=== PATIENT | female | born 1960 | race Caucasian/White ===

== ENCOUNTER 2020-12-22 06:20 | Emergency (ER) | payer BC ==
[2020-12-22] MEDS ORDERED: NA CHLORIDE 0.9% 2,000 ML ONE (07:12)
[2020-12-22 07:21] LABS: Absolute Lymphocytes (CBC) 1.2 K/uL (0.7-4.9); Basophils % 0.6 % (0-1.3); Hematocrit 38.7 % (36.0-45.0); Lymphocytes % 13.6 % (15.3-44.8); MPV 9.4 fL (7.6-11.3); RBC Red Blood Cell Count 4.32 M/uL (3.86-4.86)
[2020-12-22 07:34] LABS: ALT/SGPT 78 U/L (12-78); AST/SGOT 49 U/L (15-37); Albumin 3.9 g/dL (3.4-5.0); Alkaline Phosphatase 128 U/L (45-117); Amylase 32 U/L (25-115); BUN Blood Urea Nitrogen 13 mg/dL (7-18); Bicarbonate 24 mmol/L (21-32); Bilirubin Direct 0.2 mg/dL (0-0.2); Bilirubin Total 0.4 mg/dL (0.2-1.0); CKMB Creatine Kinase MB < 1.0 ng/mL (0.3-3.6); Creatine Phosphokinase 49 U/L (26-192); Glucose Level 117 mg/dL (74-106); Lipase 75 U/L (73-393); Potassium 4.2 mmol/L (3.5-5.1); Protein, Total 7.4 g/dL (6.4-8.2); Sodium Level 141 mmol/L (136-145); Troponin (Emerg Dept Use Only) < 0.02 ng/mL (0.0-0.045)
[2020-12-22 07:45] LABS: Protime INR 0.94
--- NOTE | 2020-12-22 08:16 | RAD REPORT ---
EXAM DESCRIPTION: RAD - Chest Single View - 12/22/2020 7:37 am CLINICAL HISTORY: COUGH, low grade fever COMPARISON: None TECHNIQUE: AP portable chest image was obtained 12/22/2020 7:37 am . FINDINGS: No dense mass or consolidation. No measurable airspace opacification to suspect COVID-19 o r other viral pneumonia. Heart and vasculature are normal. No measurable pleural effusion and no pneu mothorax. No acute bony abnormality seen. No acute aortic findings suspected. IMPRESSION: No acute cardiopulmonary process.
[2020-12-22 08:17] LABS: SARS-COV-2 RT PCR POSITIVE (NEGATIVE)
--- NOTE | 2020-12-22 09:02 | ER ---
Nurse's Notes [facility] Name: Cinda eRy Age: 60 yrs Sex: Female : 1960 Arrival Date: 12/22/2020 Time: 06:28 Bed 5 Private MD: Diagnosis: Acute upper respiratory infection, unspecified-covid 19 positive;Acute pharyngitis Presentation: 12/22 06:37 Chief complaint: Patient states: On I started having nasal drainage, and I sg think its making my throat sore from all the drainage from my nose going down my throat, I also have had a low grade fever at home. Coronavirus screen: fever, runny nose, sore throat, Client presents with at least one sign or symptom that may indicate coronavirus-19. Standard/surgical mask placed on the client. Provider contacted for isolation considerations. Ebola Screen: Patient negative for fever greater than or equal to 101.5 degrees Fahrenheit, and additional compatible Ebola Virus Disease symptoms Patient denies exposure to infectious person. Patient denies travel to an Ebola-affected area in the 21 days before illness onset. No symptoms or risks identified at this time. Initial Sepsis Screen: Does the patient meet any 2 criteria? No. Patient's initial sepsis screen is negative. Does the patient have a suspected source of infection? No. Patient's initial sepsis screen is negative. Risk Assessment: Do you want to hurt yourself or someone else? Patient reports no desire to harm self or others. Onset of symptoms was December 21, 2020. Care prior to arrival: None. Transition of care: patient was not received from another setting of care. 06:37 Acuity: KYLEE 4 06:37 Method Of Arrival: Ambulatory sg Triage Assessment: 07:15 General: Behavior is calm, cooperative. mg2 Historical: - Allergies: 06:41 No Known Allergies; sg - Home Meds: 06:41 amlodipine-benazepril 5-40 mg oral cap 1 cap once daily for Hypertension [Active]; sg metoprolol tartrate 25 mg Oral tab for Hypertension [Active]; - PMHx: 06:41 Hypertension; sg - PSHx: 06:41 None; sg - Immunization history:: Adult Immunizations not up to date. - Social history:: Smoking status: Patient denies any tobacco usage or history of. Screenin:51 Abuse screen: Denies threats or abuse. Denies injuries from another. Nutritional mg2 screening: No deficits noted. Tuberculosis screening: No symptoms or risk factors identified. 07:15 Fall Risk IV access (20 points). mg2 Assessment: 06:45 General: Appears in no apparent distress. was pale and diaphoretic. Pain: Complains of mg2 pain in throat. Neuro: Level of Consciousness is awake, alert, obeys commands, Oriented to person, place, time, situation. Cardiovascular: Capillary refill < 3 seconds. Respiratory: Airway is patent Respiratory effort is even, unlabored, Respiratory pattern is regular, symmetrical. GI: No signs and/or symptoms were reported involving the gastrointestinal system. GI:. : No signs and/or symptoms were reported regarding the genitourinary system. EENT: Reports sore throat andf congestion. Derm: Skin is pale. Musculoskeletal: Circulation, motion, and sensation intact. Capillary refill < 3 seconds. 07:00 Reassessment: RECD REPORT FROM HUEY BECK. 60YO WF P/W SORE THROAT AND CONGESTION. bp Respiratory: Breath sounds are clear bilaterally. 08:19 Reassessment: No changes from previously documented assessment. Patient and/or family bp updated on plan of care and expected duration. Pain level reassessed. Patient is alert, oriented x 3, equal unlabored respirations, skin warm/dry/pink. PER LAB, PT COV+. 08:50 Reassessment: TERRI [phone]. bp 09:08 Reassessment: No changes from previously documented assessment. Patient and/or family bp updated on plan of care and expected duration. Pain level reassessed. Patient is alert, oriented x 3, equal unlabored respirations, skin warm/dry/pink. 09:59 Reassessment: D/C ON HOLD FOR IV ABX. bp 11:31 Reassessment: PT D/C HOME AMBULATORY WITH FAMILY, DX WITH COVID. bp Vital Signs: 06:37 Weight 54.43 kg; Height 5 ft. 4 in. (162.56 cm); sg 06:37 BP 54 / 46; Pulse 50; Resp 15; Temp 98.5; Pulse Ox 98% on R/A; rr5 06:50 BP 91 / 64; Pulse 53; Resp 16; Temp 98.5; Pulse Ox 97% ; rr5 07:12 BP 91 / 73; Pulse 59; Resp 16; Pulse Ox 95% on R/A; mg2 08:19 BP 129 / 75; Pulse 76; Resp 16; Pulse Ox 100% ; bp 09:08 BP 117 / 73; Pulse 69; Resp 19; Pulse Ox 99% ; bp 09:59 BP 119 / 75; Pulse 78; Resp 16; Pulse Ox 99% ; bp 11:31 BP 125 / 81; Pulse 80; Resp 16; Temp 98.9; Pulse Ox 100% ; bp 06:37 Body Mass Index 20.60 (54.43 kg, 162.56 cm) ED Course: 06:28 Patient arrived in ED. am4 06:33 Jhonny Lopez MD is Attending Physician. mh7 06:37 Arm band placed on. sg 06:39 Triage completed. sg 06:47 Jimmy Carcamo RN is Primary Nurse. mg2 06:50 Inserted saline lock: 20 gauge in right antecubital area, using aseptic technique. mg2 Blood collected. by KIRAN Ray. 07:00 EKG done, by ED staff, reviewed by Jhonny Lopez MD. rr5 07:15 Patient has correct armband on for positive identification. Door closed. Warm blanket mg2 given. 07:15 No provider procedures requiring assistance completed. mg2 07:15 Inserted saline lock: 18 gauge in left forearm, using aseptic technique. Blood mg2 collected. by KIRAN Gomez. 08:14 Attending Physician role handed off by Jhonny Lopez MD candelaria 08:14 Bashir Hamilton MD is Attending Physician. candelaria 08:17 Primary Nurse role handed off by Jimmy Carcamo RN bp 08:17 [place] RN is Primary Nurse. bp 09:01 Tiago Howard MD is Referral Physician. candelaria 11:31 IV discontinued, intact, bleeding controlled, No redness/swelling at site. Pressure bp dressing applied. Administered Medications: 07:12 Drug: NS 0.9% (30 ml/kg) 30 ml/kg Route: IV; Rate: bolus; Site: right antecubital; mg2 09:09 Follow up: Response: No adverse reaction; IV Status: Completed infusion; IV Intake: bp 100ml 09:00 Drug: Rocephin 1 grams Route: IV; Rate: per protocol; Site: right forearm; bp 09:26 Follow up: IV Status: Completed infusion; IV Intake: 50ml bp 09:00 Drug: Aspirin Chewable Tablet 324 mg Route: PO; bp 09:24 Follow up: Response: No adverse reaction bp 09:00 Drug: Pepcid 20 mg Route: IVP; Site: right forearm; bp 09:24 Follow up: Response: No adverse reaction bp 09:00 Drug: Decadron - Dexamethasone 10 mg Route: IVP; Site: right forearm; bp 09:24 Follow up: Response: No adverse reaction bp 09:45 Drug: Zithromax 500 mg Route: IVPB; Infused Over: 1 hrs; Site: right forearm; bp 10:45 Follow up: IV Status: Completed infusion; IV Intake: 250ml bp 09:45 Drug: Albuterol HFA Inhaler 4 puffs Route: Inhalation; bp 10:40 Drug: Tussionex Pennkinetic ER 5 ml Route: PO; bp 10:44 Follow up: Response: No adverse reaction bp Intake: 09:09 IV: 100ml; Total: 100ml. bp 09:26 IV: 50ml; Total: 150ml. bp 10:45 IV: 250ml; Total: 400ml. bp Outcome: 09:02 Discharge ordered by . candelaria 11:31 Discharged to home ambulatory, with family. bp 11:31 Condition: stable 11:31 Discharge instructions given to patient, Instructed on discharge instructions, follow up and referral plans. medication usage, Demonstrated understanding of instructions, follow-up care, medications, Prescriptions given X 5 11:33 Patient left the ED. bp Signatures: Chris Dutton RN RN sg Anderson, Corey, MD MD cha Peltier, Brian, RN RN bp Jimmy Carcamo RN RN mg2 Cory Oscar RN RN rr5 Jhonny Lopez MD MD 7 Tuyet Cristobal 4
--- NOTE | 2020-12-22 09:02 | EDPHYS ---
Physician Documentation [facility] Name: Cinda Rey Age: 60 yrs Sex: Female : 1960 Arrival Date: 12/22/2020 Time: 06:28 Bed 5 Private MD: ED Physician Bashir Hamilton HPI: 12/22 07:12 This 60 yrs old Female presents to ER via Ambulatory with complaints of Sore mh7 Throat, Congestion. 07:12 The patient presents with sore throat. mh7 07:13 The patient describes throat pain as constant. Onset: The symptoms/episode mh7 began/occurred 2 day(s) ago. Severity of symptoms: At their worst the symptoms were moderate, yesterday, in the emergency department the symptoms are unchanged. Modifying factors: The symptoms are alleviated by nothing, the symptoms are aggravated by swallowing. Associated signs and symptoms: Pertinent positives: cough, dysphagia, fever, flu-like symptoms, myalgias, rhinorrhea, Pertinent negatives chest pain, chills, diarrhea, earache, headache, nausea, shortness of breath, vomiting. Historical: - Allergies: 06:41 No Known Allergies; sg - Home Meds: 06:41 amlodipine-benazepril 5-40 mg oral cap 1 cap once daily for Hypertension [Active]; sg metoprolol tartrate 25 mg Oral tab for Hypertension [Active]; - PMHx: 06:41 Hypertension; sg - PSHx: 06:41 None; sg - Immunization history:: Adult Immunizations not up to date. - Social history:: Smoking status: Patient denies any tobacco usage or history of. ROS: 07:13 Eyes: Negative for injury, pain, redness, and discharge, Neck: Negative for injury, mh7 pain, and swelling, Cardiovascular: Negative for chest pain, palpitations, and edema, Respiratory: Negative for shortness of breath, cough, wheezing, and pleuritic chest pain, Abdomen/GI: Negative for abdominal pain, nausea, vomiting, diarrhea, and constipation, Back: Negative for injury and pain, : Negative for injury, bleeding, discharge, and swelling, MS/Extremity: Negative for injury and deformity, Skin: Negative for injury, rash, and discoloration, Neuro: Negative for headache, weakness, numbness, tingling, and seizure, Psych: Negative for depression, anxiety, suicide ideation, homicidal ideation, and hallucinations, Allergy/Immunology: Negative for hives, rash, and allergies, Endocrine: Negative for neck swelling, polydipsia, polyuria, polyphagia, and marked weight changes, Hematologic/Lymphatic: Negative for swollen nodes, abnormal bleeding, and unusual bruising. Exam: 07:13 Head/Face: Normocephalic, atraumatic. Eyes: Pupils equal round and reactive to light, mh7 extra-ocular motions intact. Lids and lashes normal. Conjunctiva and sclera are non-icteric and not injected. Cornea within normal limits. Periorbital areas with no swelling, redness, or edema. ENT: Nares patent. No nasal discharge, no septal abnormalities noted. Tympanic membranes are normal and external auditory canals are clear. Oropharynx with no redness, swelling, or masses, exudates, or evidence of obstruction, uvula midline. Mucous membranes moist. Neck: Trachea midline, no thyromegaly or masses palpated, and no cervical lymphadenopathy. Supple, full range of motion without nuchal rigidity, or vertebral point tenderness. No Meningismus. Chest/axilla: Normal chest wall appearance and motion. Nontender with no deformity. No lesions are appreciated. Cardiovascular: Regular rate and rhythm with a normal S1 and S2. No gallops, murmurs, or rubs. Normal PMI, no JVD. No pulse deficits. Respiratory: Lungs have equal breath sounds bilaterally, clear to auscultation and percussion. No rales, rhonchi or wheezes noted. No increased work of breathing, no retractions or nasal flaring. Abdomen/GI: Soft, non-tender, with normal bowel sounds. No distension or tympany. No guarding or rebound. No evidence of tenderness throughout. Back: No spinal tenderness. No costovertebral tenderness. Full range of motion. Skin: Warm, dry with normal turgor. Normal color with no rashes, no lesions, and no evidence of cellulitis. MS/ Extremity: Pulses equal, no cyanosis. Neurovascular intact. Full, normal range of motion. Neuro: Awake and alert, GCS 15, oriented to person, place, time, and situation. Cranial nerves II-XII grossly intact. Motor strength 5/5 in all extremities. Sensory grossly intact. Cerebellar exam normal. Normal gait. Psych: Awake, alert, with orientation to person, place and time. Behavior, mood, and affect are within normal limits. 07:13 Constitutional: The patient appears alert, awake, obviously ill. 09:06 ECG was reviewed by the Attending Physician. [facility] Vital Signs: 06:37 Weight 54.43 kg; Height 5 ft. 4 in. (162.56 cm); sg 06:37 BP 54 / 46; Pulse 50; Resp 15; Temp 98.5; Pulse Ox 98% on R/A; rr5 06:50 BP 91 / 64; Pulse 53; Resp 16; Temp 98.5; Pulse Ox 97% ; rr5 07:12 BP 91 / 73; Pulse 59; Resp 16; Pulse Ox 95% on R/A; mg2 08:19 BP 129 / 75; Pulse 76; Resp 16; Pulse Ox 100% ; bp 09:08 BP 117 / 73; Pulse 69; Resp 19; Pulse Ox 99% ; bp 09:59 BP 119 / 75; Pulse 78; Resp 16; Pulse Ox 99% ; bp 11:31 BP 125 / 81; Pulse 80; Resp 16; Temp 98.9; Pulse Ox 100% ; bp 06:37 Body Mass Index 20.60 (54.43 kg, 162.56 cm) sg MDM: 08:15 Patient medically screened. [facility] 08:59 Differential diagnosis: cocksackie virus, echovirus infection, group A strep candelaria tonsillitis, influenza, laryngitis, pharyngitis, tonsillitis, tracheobronchitis, upper respiratory infection. Data reviewed: vital signs, nurses notes, lab test result(s), EKG, radiologic studies, plain films. Data interpreted: lunchroom monitor: rate is 76 beats/min, rhythm is regular, Pulse oximetry: on room air is 100 %. Test interpretation: by ED physician or midlevel provider: ECG, plain radiologic studies. 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 12/22 06:52 Order name: Influenza Screen (a \\T\\ B) [facility] 12/22 06:52 Order name: Rapid Strep [facility] 12/22 06:52 Order name: COVID-19 : Document "Date of Symptom Onset" if Symptomatic. [facility] 12/22 06:54 Order name: Amylase, Serum [facility] 12/22 06:54 Order name: Basic Metabolic Panel [facility] 12/22 06:54 Order name: Blood Culture Adult (2) [facility] 12/22 06:54 Order name: CBC with Diff [facility] 12/22 06:54 Order name: Ckmb [facility] 12/22 06:54 Order name: CPK [facility] 12/22 06:54 Order name: Lactate [facility] 12/22 06:54 Order name: LFT's [facility] 12/22 06:54 Order name: Lipase [facility] 12/22 06:54 Order name: Procalcitonin [facility] 12/22 06:54 Order name: Protime (+inr) [facility] 12/22 06:54 Order name: Ptt, Activated [facility] 12/22 06:54 Order name: Troponin (emerg Dept Use Only) [facility] 12/22 06:54 Order name: Urine Microscopic Only [facility] 12/22 07:06 Order name: UDS [facility] 12/22 07:11 Order name: Glucose, Ancillary Testing; Complete Time: 07:21 EDMS 12/22 07:22 Order name: CBC with Automated Diff; Complete Time: 07:26 EDMS 12/22 07:31 Order name: Influenza Screen (A [facility]HI 12/22 07:32 Order name: CORONAVIRUS [facility] 12/22 07:34 Order name: Basic Metabolic Panel; Complete Time: 07:49 EDMS 12/22 07:34 Order name: Liver (Hepatic) Function; Complete Time: 07:49 EDMS 12/22 07:34 Order name: Creatine Phosphokinase; Complete Time: 07:49 EDMS 12/22 07:34 Order name: CKMB Creatine Kinase MB; Complete Time: 07:49 EDMS 12/22 07:34 Order name: Troponin (Emerg Dept Use Only); Complete Time: 07:49 EDMS 12/22 07:34 Order name: Amylase; Complete Time: 07:49 EDMS 12/22 07:34 Order name: Lipase; Complete Time: 07:49 EDMS 12/22 07:44 Order name: Lactate; Complete Time: 07:49 EDMS 12/22 06:54 Order name: Chest Single View XRAY [facility] 12/22 06:54 Order name: Accucheck; Complete Time: 07:12 7 12/22 06:54 Order name: Cardiac monitoring; Complete Time: 07:12 7 12/22 06:54 Order name: EKG - Nurse/Tech; Complete Time: 07:12 7 12/22 06:54 Order name: IV Saline Lock - Large Bore; Complete Time: 07:12 7 12/22 06:55 Order name: Labs collected and sent; Complete Time: 07:12 7 12/22 06:55 Order name: O2 Per Protocol; Complete Time: 07:12 7 12/22 06:55 Order name: O2 Sat Monitoring; Complete Time: 07:12 7 12/22 06:55 Order name: Urine Dipstick-Ancillary (obtain specimen); Complete Time: 10:45 7 12/22 07:43 Order name: Misc. Order: repeat lac in 2hrs/ \\T\\ 0942; Complete Time: 10:45 12/22 07:48 Order name: Protime (+INR); Complete Time: 07:49 EDMS 12/22 07:48 Order name: PTT, Activated Partial Thromb; Complete Time: 07:49 EDMS 12/22 08:08 Order name: Group A Streptococcus Rapid Sc; Complete Time: 08:39 EDMS 12/22 08:16 Order name: RAD; Complete Time: 08:39 EDMS 12/22 08:18 Order name: COVID-19/FLU A+B; Complete Time: 08:39 EDMS 12/22 08:35 Order name: Procalcitonin; Complete Time: 08:39 EDMS 12/22 10:23 Order name: Lactate Sepsis 2 HR Follow-up EDHI 12/22 10:37 Order name: Urine Dipstick--Ancillary (enter results) 12/22 10:44 Order name: Urine Dipstick-Ancillary [facility] 12/22 10:55 Order name: Urine Drug Screen [facility] 12/22 11:00 Order name: Urine Microscopic Only EDMS EC:06 Rate is 52 beats/min. Rhythm is regular. QRS [place] is Normal. MA interval is normal. QRS candelaria interval is normal. QT interval is normal. No Q waves. T waves are Normal. No ST changes noted. Clinical impression: Sinus bradycardia and No evidence of ischemia. Interpreted by me. Reviewed by me. Administered Medications: 07:12 Drug: NS 0.9% (30 ml/kg) 30 ml/kg Route: IV; Rate: bolus; Site: right antecubital; mg2 09:09 Follow up: Response: No adverse reaction; IV Status: Completed infusion; IV Intake: bp 100ml 09:00 Drug: Rocephin 1 grams Route: IV; Rate: per protocol; Site: right forearm; bp 09:26 Follow up: IV Status: Completed infusion; IV Intake: 50ml bp 09:00 Drug: Aspirin Chewable Tablet 324 mg Route: PO; bp 09:24 Follow up: Response: No adverse reaction bp 09:00 Drug: Pepcid 20 mg Route: IVP; Site: right forearm; bp 09:24 Follow up: Response: No adverse reaction bp 09:00 Drug: Decadron - Dexamethasone 10 mg Route: IVP; Site: right forearm; bp 09:24 Follow up: Response: No adverse reaction bp 09:45 Drug: Zithromax 500 mg Route: IVPB; Infused Over: 1 hrs; Site: right forearm; bp 10:45 Follow up: IV Status: Completed infusion; IV Intake: 250ml bp 09:45 Drug: Albuterol HFA Inhaler 4 puffs Route: Inhalation; bp 10:40 Drug: Tussionex Pennkinetic ER 5 ml Route: PO; bp 10:44 Follow up: Response: No adverse reaction bp Disposition: 12/22/20 09:02 Discharged to Home. Impression: Acute upper respiratory infection, unspecified - covid 19 positive, Acute pharyngitis. - Condition is Stable. - Discharge Instructions: Pharyngitis, Cool Mist Vaporizer, Upper Respiratory Infection, Adult, [id number], Pharyngitis, Ggue-co-Mvge, Aspirin and Your Heart, Sore Throat, [id number], COVID-19. - Prescriptions for dexamethasone 2 mg Oral tablet - take 1 tablet by ORAL route 3 times per day; 15 tablet. Pepcid 20 mg Oral Tablet - take 1 tablet by ORAL route every 12 hours for 30 days; 60 tablet. Albuterol Sulfate 90 mcg/actuation Inhalation - inhale 2 puff by INHALATION route every 4-6 hours; 1 Inhaler. Zithromax 500 mg Oral Tablet - take 1 tablet by ORAL route once daily for 4 days; 4 tablet. Bromfed DM 2- 30-10 mg/5 mL Oral syrup - take 10 milliliter by ORAL route every 6 hours; 160 milliliter. - Medication Reconciliation Form, Thank You Letter, Antibiotic Education, Prescription Opioid Use, Work release form, Family Work Release form. - Follow up: Private Physician; When: 2 - 3 days; Reason: Recheck today's complaints, Continuance of care, Re-evaluation by your physician. Follow up: Tiago Howard MD; When: 2 - 3 days; Reason: Recheck today's complaints, Continuance of care, Re-evaluation by your physician. - Problem is new. - Symptoms have improved. Signatures: Dispatcher [employer] EDMS Chris Dutton RN RN sg Bashir Hamilton MD MD cha Peltier, Brian, RN RN Roz Santana Michele, RN RN mg2 Jhonny Lopez MD MD mh7 Corrections: (The following items were deleted from the chart) 11:33 09:02 12/22/2020 09:02 Discharged to Home. Impression: Acute upper respiratory bp infection, unspecified - covid 19 positive; Acute pharyngitis. Condition is Stable. Forms are Medication Reconciliation Form, Thank You Letter, Antibiotic Education, Prescription Opioid Use. Follow up: Private Physician; When: 2 - 3 days; Reason: Recheck today's complaints, Continuance of care, Re-evaluation by your physician. Follow up: Tiago Howard; When: 2 - 3 days; Reason: Recheck today's complaints, Continuance of care, Re-evaluation by your physician. Problem is new. Symptoms have improved. candelaria
[2020-12-22] MEDS ORDERED: dexAMETHasone 10 MG/ML VIAL ONE (09:14)
[2020-12-22] MEDS ORDERED: FAMOTIDINE 20 MG/2 ML VIAL IV ONE (09:14)
[2020-12-22] MEDS ORDERED: NA CHLORIDE 0.9% 100 ML ONE (09:14)
[2020-12-22] MEDS ORDERED: CEFTRIAXONE/SWI 1gm 1 GM/10 ML SYR ONE (09:14)
[2020-12-22] MEDS ORDERED: ASPIRIN 81 MG CHEWABLE TABLET ONE (09:14)
[2020-12-22] MEDS ORDERED: AZITHROMYCIN IV 500 MG in NA CHLORIDE 0.9% 250 ML IVPB ONE (10:00)
[2020-12-22] MEDS ORDERED: ALBUTEROL INHALER 60 PUFF/8 GM IH ONE (10:09)
[2020-12-22 10:44] LABS: Urine Blood NEGATIVE (NEG); Urine Glucose NEGATIVE (NEG); Urine Protein NEGATIVE (NEG); Urine Specific Gravity 1.015 (1.005-1.030)
[2020-12-22 10:55] LABS: Barbiturates NEGATIVE (NEGATIVE); Benzodiazepines NEGATIVE (NEGATIVE); Cocaine NEGATIVE (NEGATIVE); METHAMPHETAM NEGATIVE (NEGATIVE); Methadone NEGATIVE (NEGATIVE); Opiates NEGATIVE (NEGATIVE); Phencyclidine NEGATIVE (NEGATIVE); THC Cannibis NEGATIVE (NEGATIVE)
[2020-12-22] MEDS ORDERED: HYDROCODONE/CHLORPHEN 5 ML/OSYR ONE (10:57)
[2020-12-22 11:00] LABS: Urine Bacteria <20 /HPF (<20); Urine RBC <5 /HPF (NONE SEEN)
[2020-12-22 12:38] VITALS: BP 125/81; TEMP 98.9; O2SAT 100
== END 2020-12-22 11:33 | disposition home or self-care (01) ==
LOC: ER 06:20
DX: U07.1 COVID-19 (principal); J06.9 Acute upper respiratory infection, unspecified; I10 Essential (primary) hypertension
CPT/HCPCS: 93005; 87040 ×2; 87070; 85025; 80048; 36415; 82150; 82550; 85610; 82947; 80076; 87081; 80307 ×8; 83605 ×2; 85730; 84484; 82553; 83690; 84145; 0240U; 71045; 99284; J0456; J1100; J0696; J7050; J7030; 81003; 81015

== ENCOUNTER 2020-12-28 09:11 | Emergency (ER) | payer BC ==
--- OUTSIDE RECORDS SUMMARY | 2020-12-28 09:13 | XMS REPORT | Continuity of Care Document ---
:1960 Author Organization [facility] t Address [facility] [place] [address] Care Team Providers Name Role Phone Unavailable Unavailable Unavailable Payers Payer Name Policy Type Policy Number Effective Date Expiration Date S ource Problems This patient has no known problems. Allergies, Adverse Reactions, Alerts This patient has no known allergies or adverse reactions. Medications This patient has no known medications. Procedures This patient has no known procedures. Results This patient has no known results.
--- NOTE | 2020-12-28 10:09 | RAD REPORT ---
EXAM DESCRIPTION: RAD - Chest Single View - 12/28/2020 9:57 am CLINICAL HISTORY: covid + Chest pain. COMPARISON: Chest Single View dated 12/22/2020 FINDINGS: Portable technique limits examination quality. Mild interstitial opacities are seen in both mid lungs, greater on the right. This is likely related to viral infection. The heart is normal in size. No displaced fractures.
[2020-12-28] MEDS ORDERED: NA CHLORIDE 0.9% 500 ML ONE (12:13)
[2020-12-28 12:21] LABS: Protime INR 1.05
[2020-12-28 12:31] LABS: ALT/SGPT 57 U/L (12-78); AST/SGOT 34 U/L (15-37); Albumin 2.8 g/dL (3.4-5.0); Alkaline Phosphatase 124 U/L (45-117); BUN Blood Urea Nitrogen 20 mg/dL (7-18); Bicarbonate 25 mmol/L (21-32); Bilirubin Direct 0.2 mg/dL (0-0.2); Bilirubin Total 0.5 mg/dL (0.2-1.0); CKMB Creatine Kinase MB < 1.0 ng/mL (0.3-3.6); Creatine Phosphokinase 22 U/L (26-192); Glucose Level 89 mg/dL (74-106); Lipase 105 U/L (73-393); Magnesium 2.2 mg/dL (1.8-2.4); NT PRO-BNP 83 pg/mL (<125); Potassium 3.4 mmol/L (3.5-5.1); Protein, Total 6.8 g/dL (6.4-8.2); Sodium Level 135 mmol/L (136-145); Troponin (Emerg Dept Use Only) < 0.02 ng/mL (0.0-0.045)
[2020-12-28 12:34] LABS: Basophils % 0.1 % (0-1.3); Hematocrit 37.5 % (36.0-45.0); Lymphocytes % 8.3 % (15.3-44.8); MPV 8.6 fL (7.6-11.3); RBC Red Blood Cell Count 4.25 M/uL (3.86-4.86)
[2020-12-28] MEDS ORDERED: ONDANSETRON 4 MG/2 ML VIAL ONE (12:55)
[2020-12-28] MEDS ORDERED: ACETAMINOPHEN 325 MG TABLET ONE (13:01)
[2020-12-28 13:18] LABS: Platelet Estimate ADEQ; White Blood Cell Scan OK (OK)
[2020-12-28 13:19] LABS: Blood Morphology Comment NOT SEEN (NOT SEEN)
--- NOTE | 2020-12-28 14:13 | RAD REPORT ---
EXAM DESCRIPTION: CT - Head Brain Wo Cont - 12/28/2020 1:57 pm CLINICAL HISTORY: Headache COMPARISON: None. TECHNIQUE: Computed axial tomography of the head was obtained. IV contrast was not requested. All CT scans are performed using dose optimization technique as appropriate and may include automated exposure control or mA/KV adjustment according to patient size. FINDINGS: An intracranial bleed is not seen . The ventricles are normal in caliber. No extra-axial fluid collection is noted. Fluid within the sinuses/ mastoids is not seen. IMPRESSION: No acute intracranial abnormality is seen. If patient's symptoms persist MRI of the bra in would be recommended.
--- NOTE | 2020-12-28 14:17 | RAD REPORT ---
EXAM DESCRIPTION: CT - Chest For Pe Angio - 12/28/2020 1:57 pm CLINICAL HISTORY: sob COMPARISON: None. TECHNIQUE: Dynamically enhanced axial 3 mm thick images of the chest were obtained during administra tion of <100> mL Isovue 370 IV contrast. Coronal and oblique reconstruction images were generated and reviewed. Exam utilizes a protocol for optimal evaluation of pulmonary arterial tree. Maximum intensity projections 3D imaging was utilized All CT scans are performed using dose optimization technique as appropriate and may include automated exposure control or mA/KV adjustment according to patient size. FINDINGS: A pulmonary embolus is not seen. A thoracic aortic aneurysm is not noted. A pleural effusion is not seen. A pericardial effusion is not seen. Mild to moderate ground-glass opacities within the lungs bilaterally IMPRESSION: Negative for a pulmonary embolism. Mild to moderate ground-glass opacities within the lungs bilaterally can be seen Covid pneumonia
--- NOTE | 2020-12-28 14:51 | EDPHYS ---
Physician Documentation [facility] Name: Cinda Rey Age: 60 yrs Sex: Female : 1960 Arrival Date: 12/28/2020 Time: 09:14 Bed 3 Private MD: ED Physician Gucci Castillo HPI: 12/28 11:13 This 60 yrs old Female presents to ER via Ambulatory with complaints of jmm COVID+, Dehydration. 11:13 The patient or guardian reports cough, SOB. Onset: The symptoms/episode began/occurred jmm gradually, 8 day(s) ago. Modifying factors: The symptoms are alleviated by nothing. the symptoms are aggravated by nothing. Associated signs and symptoms: Pertinent negatives: chest pain. This is a 60 year old female with a history of htn that presents to the ED with complaints of weakness, fatigue, lightheadedness worsening yesterday. Patient states she has not eaten or drink much due to abnormal sense of taste. . Historical: - Allergies: 09:34 No Known Allergies; aa5 - Home Meds: 09:34 amlodipine-benazepril 5-40 mg Oral cap 1 cap once daily for Hypertension [Active]; aa5 metoprolol tartrate 25 mg Oral tab for Hypertension [Active]; - PMHx: 09:34 Hypertension; aa5 - PSHx: 09:34 None; aa5 - Immunization history:: Immunization history: Client reports having NOT received the Covid vaccine. Flu vaccine is not up to date. - Social history:: Smoking status: Patient denies any tobacco usage or history of. ROS: 11:13 Constitutional: Positive for fatigue, malaise. jmm 11:13 Respiratory: Positive for cough, shortness of breath. 11:13 Abdomen/GI: Positive for nausea. 11:13 Neuro: Positive for near syncope. 11:13 All other systems are negative. Exam: 11:13 Constitutional: This is a well developed, well nourished patient who is awake, alert, jmm and in no acute distress. Head/Face: atraumatic. Eyes: EOMI, no conjunctival erythema appreciated ENT: Moist Mucus Membranes Neck: Trachea midline, Supple Chest/axilla: Normal chest wall appearance and motion. Cardiovascular: Regular rate and rhythm. No edema appreciated Respiratory: Normal respirations, no respiratory distress appreciated Abdomen/GI: Non distended, soft Back: Normal ROM Skin: General appearance color normal MS/ Extremity: Moves all extremities, no obvious deformities appreciated, no edema noted to the lower extremities Neuro: Awake and alert, normal gait Psych: Behavior is normal, Mood is normal, Patient is cooperative and pleasant Vital Signs: 09:32 BP 94 / 58; Pulse 68; Resp 16 S; Temp 98.2(O); Pulse Ox 93% on R/A; Weight 61.69 kg aa5 (R); Height 5 ft. 2 in. (157.48 cm) (R); 10:59 BP 94 / 61; Pulse 68; Resp 16 S; Pulse Ox 93% on R/A; aa5 11:59 BP 103 / 63; Pulse 69; Resp 16; Temp 98.8; Pulse Ox 94% on R/A; mh5 14:21 BP 106 / 63; Pulse 55; Resp 16; Pulse Ox 91% on R/A; mh5 15:54 BP 100 / 61; Pulse 58; Resp 16; Temp 98.2; Pulse Ox 93% on R/A; ph 09:32 Body Mass Index 24.87 (61.69 kg, 157.48 cm) aa5 MDM: 11:05 Patient medically screened. [facility] 14:32 Data reviewed: vital signs, nurses notes. Counseling: I had a detailed discussion with [facility] the patient and/or guardian regarding: the historical points, exam findings, and any diagnostic results supporting the discharge/admit diagnosis, lab results, radiology results, the need for outpatient follow up. 14:45 ED course: Patient stats she does feel better. O2 has been over 90% throughout the [facility] stay. Patient is given strict return precautions. Patient understood and agrees with the plan of care. . 12/28 09:19 Order name: Blood Culture Adult (2) 12/28 09:19 Order name: BMP 12/28 09:19 Order name: CBC with Diff 12/28 09:19 Order name: Ckmb 12/28 09:19 Order name: CPK 12/28 09:19 Order name: D-Dimer 12/28 09:19 Order name: Hepatic Function 12/28 09:19 Order name: Lipase 12/28 09:19 Order name: Magnesium; Complete Time: 12:33 tw4 12/28 09:19 Order name: NT PRO-BNP; Complete Time: 12:33 tw4 12/28 09:19 Order name: PT-INR; Complete Time: 12:34 tw4 12/28 09:19 Order name: Ptt, Activated; Complete Time: 12:34 tw4 12/28 09:19 Order name: Troponin (emerg Dept Use Only); Complete Time: 12:33 [facility] 12/28 09:20 Order name: Blood Culture EDAL 12/28 09:19 Order name: XRAY CXR (1 view); Complete Time: 11:00 tw4 12/28 09:20 Order name: Basic Metabolic Panel; Complete Time: 12:33 [facility] 12/28 09:20 Order name: CBC with Automated Diff; Complete Time: 13:20 [facility] 12/28 09:20 Order name: CKMB Creatine Kinase MB; Complete Time: 12:33 [facility] 12/28 09:20 Order name: Creatine Phosphokinase; Complete Time: 12:33 [facility] 12/28 09:20 Order name: D-Dimer; Complete Time: 12:34 [facility] 12/28 09:20 Order name: Liver (Hepatic) Function; Complete Time: 12:33 [facility] 12/28 09:20 Order name: Lipase; Complete Time: 12:33 [facility] 12/28 11:38 Order name: CRP; Complete Time: 13:20 [facility] 12/28 12:34 Order name: CT Chest For PE Angio; Complete Time: 14:17 [facility] 12/28 12:50 Order name: CT Head Brain wo Cont; Complete Time: 14:17 [facility] 12/28 13:18 Order name: CBC Smear Scan; Complete Time: 13:20 [facility] 12/28 09:19 Order name: Cardiac monitoring; Complete Time: 11:38 tw4 12/28 09:19 Order name: IV Saline Lock; Complete Time: 11:38 4 12/28 09:19 Order name: Labs collected and sent; Complete Time: 11:38 tw4 12/28 09:19 Order name: O2 Per Protocol; Complete Time: 11:58 tw4 12/28 09:19 Order name: O2 Sat Monitoring; Complete Time: 11:58 tw4 Administered Medications: 12:06 Drug: NS 0.9% 500 ml Route: IV; Rate: bolus; Site: right antecubital; ph 13:15 Follow up: Response: No adverse reaction; IV Status: Completed infusion; IV Intake: ph 500ml 12:48 Drug: Acetaminophen 650 mg Route: PO; hb 13:00 Follow up: Response: No adverse reaction ph 12:48 Drug: Zofran (Ondansetron) 4 mg Route: IVP; Site: right antecubital; hb 13:00 Follow up: Response: No adverse reaction ph 15:45 Drug: Decadron - Dexamethasone 10 mg Route: IVP; Site: right antecubital; ph 16:00 Follow up: Response: No adverse reaction ph Disposition: 18:51 Co-signature as Attending Physician, Gucci Castillo MD I agree with the assessment and tw4 plan of care. Disposition: 12/28/20 14:51 Discharged to Home. Impression: Dehydration, Coronavirus infection, unspecified. - Condition is Stable. - Discharge Instructions: Dehydration, Adult, COVID-19. - Prescriptions for Zofran ODT 4 mg Oral tablet,disintegrating - place 1 tablet by TRANSLINGUAL route every 4-6 hours; 20 tablet. ivermectin 3 mg Oral tablet - take 6 tablet by ORAL route as directed x1 dose; 12 tablet. Albuterol Sulfate 90 mcg/actuation - inhale 1-2 puff by INHALATION route every 4-6 hours; 1 Inhaler. - Medication Reconciliation Form, Thank You Letter, Antibiotic Education, Prescription Opioid Use form. - Follow up: Private Physician; When: 2 - 3 days; Reason: Recheck today's complaints, Continuance of care, Re-evaluation by your physician. Signatures: Dispatcher [employer] EDMS Matias Smith PA PA [facility] Shanon Sandoval, RN RN aa5 Alicia Richter RN RN Deidra Villarreal, RN RN Gucci Prather MD MD tw4 Corrections: (The following items were deleted from the chart) 14:51 14:45 ED course: Patient stats she does feel better. O2 has been over 90% throughout [facility] the stay. . [facility] 15:55 14:51 12/28/2020 14:51 Discharged to Home. Impression: Dehydration; Coronavirus ph infection, unspecified. Condition is Stable. Forms are Medication Reconciliation Form, Thank You Letter, Antibiotic Education, Prescription Opioid Use. Follow up: Private Physician; When: 2 - 3 days; Reason: Recheck today's complaints, Continuance of care, Re-evaluation by your physician. igor
--- NOTE | 2020-12-28 14:51 | ER ---
Nurse's Notes [facility] Name: Cinda Rey Age: 60 yrs Sex: Female : 1960 Arrival Date: 12/28/2020 Time: 09:14 Bed 3 Private MD: Diagnosis: Dehydration;Coronavirus infection, unspecified Presentation: 12/28 09:32 Chief complaint: Patient states: positive for COVID-19 on Thursday now feels like she aa5 is dehydrated. Reports feeling dizzy, weak and nauseated. Denies vomiting, denies diarrhea. Coronavirus screen: Client presents with at least one sign or symptom that may indicate coronavirus-19. Standard/surgical mask placed on the client. Provider contacted for isolation considerations. Ebola Screen: Patient negative for fever greater than or equal to 101.5 degrees Fahrenheit, and additional compatible Ebola Virus Disease symptoms. Initial Sepsis Screen: Does the patient meet any 2 criteria? No. Patient's initial sepsis screen is negative. Does the patient have a suspected source of infection? Yes:. Risk Assessment: Do you want to hurt yourself or someone else? Patient reports no desire to harm self or others. Onset of symptoms was December 2020. 09:32 Method Of Arrival: Ambulatory aa5 09:32 Acuity: KYLEE 2 aa5 Historical: - Allergies: 09:34 No Known Allergies; aa5 - Home Meds: 09:34 amlodipine-benazepril 5-40 mg Oral cap 1 cap once daily for Hypertension [Active]; aa5 metoprolol tartrate 25 mg Oral tab for Hypertension [Active]; - PMHx: 09:34 Hypertension; aa5 - PSHx: 09:34 None; aa5 - Immunization history:: Immunization history: Client reports having NOT received the Covid vaccine. Flu vaccine is not up to date. - Social history:: Smoking status: Patient denies any tobacco usage or history of. Screenin:08 Abuse screen: Denies threats or abuse. Denies injuries from another. Nutritional ph screening: No deficits noted. Tuberculosis screening: No symptoms or risk factors identified. Fall Risk None identified. Assessment: 12:06 General: Appears in no apparent distress. comfortable, well groomed, Behavior is calm, ph cooperative, appropriate for age, drowsy. Pain: Denies pain. Neuro: Level of Consciousness is alert, obeys commands, Oriented to person, place, time, situation, Reports dizziness, weakness. Cardiovascular: Capillary refill < 3 seconds in bilateral fingers Patient's skin is warm and dry. Respiratory: Reports cough that is Airway is patent Respiratory effort is even, unlabored, Respiratory pattern is regular, symmetrical, Denies shortness of breath. GI: Reports nausea, Patient currently denies abdominal pain, diarrhea, vomiting. : No signs and/or symptoms were reported regarding the genitourinary system. Derm: Skin is intact, is healthy with good turgor, Skin is pink, warm \T\ dry. Musculoskeletal: Circulation, motion, and sensation intact. Range of motion: intact in all extremities. 13:00 Reassessment: Patient appears in no apparent distress at this time. Patient and/or ph family updated on plan of care and expected duration. Pain level reassessed. Patient is alert, oriented x 3, equal unlabored respirations, skin warm/dry/pink. 14:00 Reassessment: Patient appears in no apparent distress at this time. Patient and/or ph family updated on plan of care and expected duration. Pain level reassessed. Patient is alert, oriented x 3, equal unlabored respirations, skin warm/dry/pink. Vital Signs: 09:32 BP 94 / 58; Pulse 68; Resp 16 S; Temp 98.2(O); Pulse Ox 93% on R/A; Weight 61.69 kg aa5 (R); Height 5 ft. 2 in. (157.48 cm) (R); 10:59 BP 94 / 61; Pulse 68; Resp 16 S; Pulse Ox 93% on R/A; aa5 11:59 BP 103 / 63; Pulse 69; Resp 16; Temp 98.8; Pulse Ox 94% on R/A; mh5 14:21 BP 106 / 63; Pulse 55; Resp 16; Pulse Ox 91% on R/A; mh5 15:54 BP 100 / 61; Pulse 58; Resp 16; Temp 98.2; Pulse Ox 93% on R/A; ph 09:32 Body Mass Index 24.87 (61.69 kg, 157.48 cm) aa5 ED Course: 09:14 Patient arrived in ED. mr 09:32 Arm band placed on. aa5 09:34 Triage completed. aa5 09:39 Gucci Castillo MD is Attending Physician. tw4 09:57 XRAY CXR (1 view) In Process Unspecified. EDMS 11:00 Matias Smith PA is PHCP. m 11:35 Initial lab(s) drawn, by az, sent to lab. First set of blood cultures drawn by az. mh5 11:36 Inserted saline lock: 20 gauge in right antecubital area, using aseptic technique. mh5 Blood collected. 11:37 Patient has correct armband on for positive identification. Placed in gown. Bed in low mh5 position. Call light in reach. Side rails up X 1. Warm blanket given. studio director on. Pulse ox on. NIBP on. 11:37 Lipase Sent. mh5 11:37 D-Dimer Sent. mh5 11:37 Liver (Hepatic) Function Sent. 5 11:37 CBC with Automated Diff Sent. mh5 11:37 CKMB Creatine Kinase MB Sent. mh5 11:37 Creatine Phosphokinase Sent. mh5 11:37 Basic Metabolic Panel Sent. mh5 11:38 Blood Culture Sent. mh5 11:38 Blood Culture Adult (2) Sent. mh5 11:38 BMP Sent. mh5 11:38 CBC with Diff Sent. mh5 11:38 Ckmb Sent. mh5 11:38 CPK Sent. mh5 11:38 D-Dimer Sent. mh5 11:39 Hepatic Function Sent. mh5 11:39 Lipase Sent. mh5 11:39 Magnesium Sent. mh5 11:39 NT PRO-BNP Sent. mh5 11:39 PT-INR Sent. mh5 11:39 Ptt, Activated Sent. mh5 11:39 Troponin (emerg Dept Use Only) Sent. mh5 11:40 Alicia Richter, RN is Primary Nurse. ph 11:55 Second set of blood cultures drawn by az. mh5 13:56 CT Chest For PE Angio In Process Unspecified. EDMS 13:56 CT Head Brain wo Cont In Process Unspecified. EDMS 15:54 No provider procedures requiring assistance completed. IV discontinued, intact, ph bleeding controlled, No redness/swelling at site. Pressure dressing applied. Administered Medications: 12:06 Drug: NS 0.9% 500 ml Route: IV; Rate: bolus; Site: right antecubital; ph 13:15 Follow up: Response: No adverse reaction; IV Status: Completed infusion; IV Intake: ph 500ml 12:48 Drug: Acetaminophen 650 mg Route: PO; hb 13:00 Follow up: Response: No adverse reaction ph 12:48 Drug: Zofran (Ondansetron) 4 mg Route: IVP; Site: right antecubital; hb 13:00 Follow up: Response: No adverse reaction ph 15:45 Drug: Decadron - Dexamethasone 10 mg Route: IVP; Site: right antecubital; ph 16:00 Follow up: Response: No adverse reaction ph Intake: 13:15 IV: 500ml; Total: 500ml. ph Outcome: 14:51 Discharge ordered by . [facility] 15:54 Discharged to home via wheelchair. ph 15:54 Condition: good 15:54 Discharge instructions given to patient, Instructed on discharge instructions, follow up and referral plans. medication usage, Demonstrated understanding of instructions, follow-up care, medications, Prescriptions given X 3. 15:55 Patient left the ED. ph Signatures: Dispatcher [employer] EDMS Matias Smith PA PA charbel Elezaar Joyce Sandoval, Shanon, RN RN aa5 Alicia Richter RN RN ph Baxter, Heather, RN RN hb Martinez, Maria 5 Gucci Castillo MD MD tw4 Corrections: (The following items were deleted from the chart) 17:50 15:54 BP 100 / 61; Pulse 58bpm; Resp 16bpm; Pulse Ox 93% RA; ph ph
[2020-12-28] MEDS ORDERED: dexAMETHasone 10 MG/ML VIAL ONE (15:52)
[2020-12-28 16:03] VITALS: TEMP 98.8
[2020-12-28 16:06] VITALS: BP 100/61; O2SAT 93
== END 2020-12-28 15:55 | disposition home or self-care (01) ==
LOC: ER 09:11
DX: U07.1 COVID-19 (principal); E86.0 Dehydration; I10 Essential (primary) hypertension
CPT/HCPCS: 96361; 87040 ×2; 85025; 80048; 36415; 83735; 82550; 85610; 85379; 80076; 85730; 84484; 82553; 83690; 83880; 86140; 70450; 71275; 71045; 96375; 96374; 99284; Q9967; J1100; J7040; J2405